=== PATIENT | male | born 1975 | race Caucasian/White ===

== ENCOUNTER 2017-03-03 13:06 | Emergency (ER) | payer SELFPAY ==
[~2017-03-03] VITALS: Ht 190.5 cm; Wt 104.3 kg
[~2017-03-03 13:06] MED LIST: ATENPOW10; LORA-205; PAXIL
[2017-03-03 13:27] VITALS: BP 138/90
== END 2017-03-03 15:05 | disposition home or self-care (01) ==
LOC: ER 13:06
DX: S40.012A Contusion of left shoulder, initial encounter (principal); I10 Essential (primary) hypertension; F17.210 Nicotine dependence, cigarettes, uncomplicated; Z88.0 Allergy status to penicillin; Z88.6 Allergy status to analgesic agent; Z88.8 Allergy status to other drugs, medicaments and biological substances; X58.XXXA Exposure to other specified factors, initial encounter; Y93.67 Activity, basketball; Y99.8 Other external cause status; Y92.89 Other specified places as the place of occurrence of the external cause
CPT/HCPCS: 73030